=== PATIENT | female | born 2005 | race Caucasian/White ===

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

== ENCOUNTER → 2023-01-09 | Outpatient (CLI) | payer OTHER ==
[~2023-01-09] MED LIST changes: +CRAN400C PO; +LORA-243 PO; +OMEP1CAP73 PO; +ONE-1TAB PO; +OYST1TAB PO; +PROBCAP2 PO; +VITA100093 PO
== END ==
LOC: M LABSMTC 09:17
PROVIDERS: ATTEND Anesthesiology
DX: Z01.812 Encounter for preprocedural laboratory examination (principal); Z11.52 Encounter for screening for COVID-19

== ENCOUNTER 2023-01-12 10:29 | Day surgery (SDC) | payer OTHER ==
[~2023-01-12] VITALS: Ht 170.2 cm; Wt 60.2 kg
[~2023-01-12 10:29] MED LIST changes: +LIDOCAINE 2% 100MG/5ML SDV (FOR ANES.) As Ordered ONE; +NS 1,000 ML IV ONE; +propofoL 200 MG/20 ML VIAL As Ordered ONE
[2023-01-12] MEDS ORDERED: fentaNYL 100 MCG/2 ML INJECTION As Ordered ONE (11:40)
[2023-01-12 12:41] VITALS: BP 125/59
== END 2023-01-12 13:02 | disposition home or self-care (01) ==
LOC: M OPP 10:29
PROVIDERS: ATTEND Internal Medicine Gastroenterology
DX: K64.8 Other hemorrhoids (principal); K31.89 Other diseases of stomach and duodenum; Z79.3 Long term (current) use of hormonal contraceptives; Z79.899 Other long term (current) drug therapy
CPT/HCPCS: 43239; 45380; 88305; J3010

== ENCOUNTER 2023-05-02 18:37 | Emergency (ER) | payer OTHER ==
[~2023-05-02] VITALS: Ht 170.2 cm; Wt 61.4 kg
[~2023-05-02 18:37] MED LIST changes: -LIDOCAINE 2% 100MG/5ML SDV (FOR ANES.) As Ordered ONE; -NS 1,000 ML IV ONE; -propofoL 200 MG/20 ML VIAL As Ordered ONE
[2023-05-02 22:38] VITALS: TEMP 97.8; O2SAT 99
[2023-05-03 01:26] VITALS: BP 119/76
== END 2023-05-03 01:25 | disposition home or self-care (01) ==
LOC: M ED 18:37
DX: S50.812A Abrasion of left forearm, initial encounter (principal); S80.01XA Contusion of right knee, initial encounter; S70.01XA Contusion of right hip, initial encounter; V00.131A Fall from skateboard, initial encounter; Y92.410 Unspecified street and highway as the place of occurrence of the external cause; Y93.51 Activity, roller skating (inline) and skateboarding; Y99.8 Other external cause status; G43.909 Migraine, unspecified, not intractable, without status migrainosus; Z79.899 Other long term (current) drug therapy

== ENCOUNTER → 2023-09-11 | Outpatient (REF) | payer OTHER ==
[2023-09-11 17:31] LABS: BASO # 0.1 10^3/uL (0.0-0.2); BASO % 0.9 % (0.0-1.0); EOS # 0.2 10^3/uL (0.0-0.5); EOS % 2.6 % (0.0-3.0); HEMATOCRIT 46.6 % (36.0-47.0); HEMOGLOBIN 15.7 g/dl (12.0-15.5); LYMPH # 1.5 10^3/uL (1.5-5.0); LYMPH % 26.1 % (24.0-44.0); MEAN CORPUSCULAR HEMOGLOBIN 31.4 pg (27.0-33.0); MEAN CORPUSCULAR HGB CONC 33.7 g/dl (32.0-36.5); MEAN CORPUSCULAR VOLUME 93.2 fl (80.0-96.0); MONO # 0.5 10^3/uL (0.0-0.8); MONO % 8.2 % (2.0-8.0); NEUTROPHILS # 3.6 10^3/uL (1.5-8.5); PLATELET COUNT, AUTOMATED 252 10^3/uL (150-450); WHITE BLOOD COUNT 5.8 10^3/uL (4.0-10.0)
[2023-09-11 17:50] LABS: HEMOGLOBIN A1c 4.8 % (4.0-6.0)
[2023-09-11 18:03] LABS: ALBUMIN 4.3 G/DL (3.2-5.2); ALKALINE PHOSPHATASE 109 U/L (46-116); ALT/SGPT 27 U/L (7.0-40); AST/SGOT 22 U/L (<34); BILIRUBIN,TOTAL 0.4 MG/DL (0.3-1.2); BLOOD UREA NITROGEN 8 MG/DL (9-23); CARBON DIOXIDE LEVEL 29 MMOL/L (20-31); CHLORIDE LEVEL 104 MMOL/L (98-107); CREATININE FOR GFR 0.62 MG/DL (0.55-1.30); GLUCOSE, FASTING 81 MG/DL (60-100); POTASSIUM SERUM 4.6 MMOL/L (3.5-5.1); SODIUM LEVEL 142 MMOL/L (136-145)
[2023-09-11 18:06] LABS: THYROID STIMULATING HORMONE 1.799 uIU/ML (0.48-4.17)
[2023-09-11 18:07] LABS: TOTAL 25(OH) VITAMIN D 24.6 NG/ML (20.0-100.0)
== END ==
LOC: M LAB REF 16:24
PROVIDERS: ATTEND Nurse Practitioner Family
DX: Z13.228 Encounter for screening for other metabolic disorders (principal)

== ENCOUNTER 2023-09-22 10:58 | Emergency (ER) | payer OTHER, SELFPAY ==
[~2023-09-22] VITALS: Ht 167.6 cm; Wt 63.0 kg
[2023-09-22 12:00] VITALS: BP 128/70; TEMP 98; O2SAT 100
== END 2023-09-22 12:30 | disposition home or self-care (01) ==
LOC: M ED 10:58
DX: S90.32XA Contusion of left foot, initial encounter (principal); S80.12XA Contusion of left lower leg, initial encounter; W08.XXXA Fall from other furniture, initial encounter; Y92.9 Unspecified place or not applicable; Z79.899 Other long term (current) drug therapy

== ENCOUNTER 2024-07-28 13:44 | Emergency (ER) | payer MEDICAID, OTHER, SELFPAY ==
[~2024-07-28] VITALS: Ht 170.2 cm; Wt 64.2 kg
[~2024-07-28 13:44] MED LIST changes: -CRAN400C PO; +CRANBERRY400 MG PO; +MULT18TA PO; -ONE-1TAB PO
[2024-07-28] MEDS: NS 1,000 ML IV ONE (14:45)
[2024-07-28 15:10] LABS: BASO % 0.5 % (0.0-1.0); EOS # 0.1 10^3/uL (0.0-0.5); EOS % 1.9 % (0.0-3.0); HEMATOCRIT 39.4 % (36.0-47.0); HEMOGLOBIN 13.1 g/dl (12.0-15.5); LYMPH # 1.5 10^3/uL (1.5-5.0); MEAN CORPUSCULAR HEMOGLOBIN 30.6 pg (27.0-33.0); MEAN CORPUSCULAR HGB CONC 33.2 g/dl (32.0-36.5); MEAN CORPUSCULAR VOLUME 92.1 fl (80.0-96.0); MONO # 0.5 10^3/uL (0.0-0.8); NEUTROPHILS # 3.6 10^3/uL (1.5-8.5); NEUTROPHILS % 62.4 % (36.0-66.0); PLATELET COUNT, AUTOMATED 197 10^3/uL (150-450); RED BLOOD COUNT 4.28 10^6/uL (4.00-5.40); WHITE BLOOD COUNT 5.7 10^3/uL (4.0-10.0)
[2024-07-28 15:18] LABS: AMPHETAMINES LEVEL URINE NEGATIVE (NEGATIVE); BARBITURATES URINE NEGATIVE (NEGATIVE); BENZODIAZEPINES URINE NEGATIVE (NEGATIVE); CANNABINOIDS URINE NEGATIVE (NEGATIVE); COCAINE METABOLITE URINE NEGATIVE (NEGATIVE); METHADONE URINE NEGATIVE (NEGATIVE); OPIATES URINE NEGATIVE (NEGATIVE); PHENCYCLIDINE URINE NEGATIVE (NEGATIVE)
[2024-07-28 15:40] LABS: BLOOD UREA NITROGEN 7 MG/DL (9-23); CALCIUM LEVEL 8.8 MG/DL (8.5-10.1); CARBON DIOXIDE LEVEL 30 MMOL/L (20-31); CHLORIDE LEVEL 106 MMOL/L (98-107); GLUCOSE, FASTING 60 MG/DL (60-100); MAGNESIUM LEVEL 1.9 MG/DL (1.8-2.4); POTASSIUM SERUM 3.9 MMOL/L (3.5-5.1); SODIUM LEVEL 140 MMOL/L (136-145)
[2024-07-28 15:43] LABS: THYROID STIMULATING HORMONE 0.808 uIU/ML (0.48-4.17)
[2024-07-28 15:48] LABS: HCG, SERUM QUALITATIVE NEGATIVE (NEGATIVE)
[2024-07-28] MEDS: METOCLOPRAMIDE INJ 10MG/2ML VIAL IV ONE (16:40)
[2024-07-28] MEDS: KETOROLAC 30 MG/ML 1ML VIAL IV ONE (16:41)
[2024-07-28 18:09] VITALS: BP 130/62; TEMP 98.6; O2SAT 99
== END 2024-07-28 18:38 | disposition home or self-care (01) ==
LOC: EDBD 13:44 → M ED 13:44
DX: R55 Syncope and collapse (principal); F17.290 Nicotine dependence, other tobacco product, uncomplicated; Z79.3 Long term (current) use of hormonal contraceptives; Z79.899 Other long term (current) drug therapy
CPT/HCPCS: 70450; 80048; 80307; 83735; 84443; 84703; 85025; 93005; 93041; 94760; 96361; 96374; 96375; 99285; J1885; J2765

== ENCOUNTER → 2024-08-08 | Outpatient (CLI) | payer OTHER | LOC: M EKG 08:44 | PROVIDERS: ATTEND Physician Assistant | DX: R55 Syncope and collapse (principal) ==

== ENCOUNTER → 2025-02-26 | Outpatient (REF) | payer OTHER ==
[2025-02-28 15:06] LABS: HPV APTIMA Not Detected (Not Detected)
== END ==
LOC: M LAB REF 02-25 18:00
PROVIDERS: ATTEND Physician Assistant
DX: Z12.4 Encounter for screening for malignant neoplasm of cervix (principal); R87.615 Unsatisfactory cytologic smear of cervix

== ENCOUNTER → 2025-03-05 | Outpatient (REF) | payer OTHER, MEDICAID ==
[2025-03-08 16:03] LABS: HPV APTIMA Not Detected (Not Detected)
== END ==
LOC: M LAB REF 09:20
PROVIDERS: ATTEND Physician Assistant
DX: Z12.4 Encounter for screening for malignant neoplasm of cervix (principal); Z11.3 Encounter for screening for infections with a predominantly sexual mode of transmission; R87.610 Atypical squamous cells of undetermined significance on cytologic smear of cervix (ASC-US)

== ENCOUNTER 2025-06-22 13:19 | Emergency (ER) | payer MEDICAID, OTHER ==
[~2025-06-22] VITALS: Ht 170.2 cm; Wt 69.1 kg
[2025-06-22 14:19] LABS: URINE PREG TEST NEGATIVE (NEGATIVE)
[2025-06-22 14:22] LABS: BASO # 0.0 10^3/uL (0.0-0.2); BASO % 0.5 % (0.0-1.0); EOS # 0.1 10^3/uL (0.0-0.5); EOS % 0.8 % (0.0-3.0); LYMPH # 1.5 10^3/uL (1.5-5.0); LYMPH % 23.1 % (24.0-44.0); MONO # 0.6 10^3/uL (0.0-0.8); MONO % 9.4 % (2.0-8.0); NEUTROPHILS # 4.3 10^3/uL (1.5-8.5); NEUTROPHILS % 65.9 % (36.0-66.0); PLATELET COUNT, AUTOMATED 206 10^3/uL (150-450)
[2025-06-22] MEDS: NS (Normal Saline) 0.9% 1,000 ML IV ONE (14:28)
[2025-06-22 14:42] LABS: CALCIUM LEVEL 8.5 MG/DL (8.5-10.1); CARBON DIOXIDE LEVEL 26 MMOL/L (20-31); CHLORIDE LEVEL 103 MMOL/L (98-107); CREATININE FOR GFR 0.61 MG/DL (0.55-1.30); GLOMERULAR FILTRATION RATE > 90.0 (>60); MAGNESIUM LEVEL 2.0 MG/DL (1.8-2.4); POTASSIUM SERUM 3.9 MMOL/L (3.5-5.1); SODIUM LEVEL 140 MMOL/L (136-145)
[2025-06-22 14:45] LABS: FREE T4 1.23 NG/DL (0.89-1.76)
[2025-06-22 14:50] LABS: AMPHETAMINES LEVEL URINE NEGATIVE (NEGATIVE); BARBITURATES URINE NEGATIVE (NEGATIVE); BENZODIAZEPINES URINE NEGATIVE (NEGATIVE); CANNABINOIDS URINE NEGATIVE (NEGATIVE); COCAINE METABOLITE URINE NEGATIVE (NEGATIVE); OPIATES URINE NEGATIVE (NEGATIVE); PHENCYCLIDINE URINE NEGATIVE (NEGATIVE)
[2025-06-22 15:07] LABS: METHADONE URINE NEGATIVE (NEGATIVE)
[2025-06-22 16:45] VITALS: BP 118/65; TEMP 97; O2SAT 100
== END 2025-06-22 16:50 | disposition home or self-care (01) ==
LOC: M ED 13:19 → EDBD 13:19 → M ED 16:50
DX: T67.9XXA Effect of heat and light, unspecified, initial encounter (principal); R55 Syncope and collapse; Z79.3 Long term (current) use of hormonal contraceptives; Z79.899 Other long term (current) drug therapy

== ENCOUNTER → 2025-07-29 | Outpatient (REF) | payer OTHER ==
[2025-07-29 15:36] LABS: ALT/SGPT 14 U/L (7.0-40); AST/SGOT 19 U/L (<34); CALCIUM LEVEL 9.7 MG/DL (8.5-10.1); CARBON DIOXIDE LEVEL 29 MMOL/L (20-31); CHLORIDE LEVEL 104 MMOL/L (98-107); CREATININE FOR GFR 0.58 MG/DL (0.55-1.30); GLOMERULAR FILTRATION RATE > 90.0 (>60); POTASSIUM SERUM 4.5 MMOL/L (3.5-5.1); SODIUM LEVEL 141 MMOL/L (136-145)
[2025-07-29 17:13] LABS: ESTIMATED AVERAGE GLUCOSE 105.0 MG/DL (60-110)
== END ==
LOC: M LAB REF 14:36
PROVIDERS: ATTEND Nurse Practitioner Family
DX: R82.4 Acetonuria (principal)